=== PATIENT | male | born 1965 | race Caucasian/White ===

== ENCOUNTER 2017-01-15 16:16 | Emergency (ER) | payer OTHER ==
[2017-01-15 16:39] VITALS: BP 127/73; PULSE 81; RESP 18; TEMP 97.8; O2SAT 100
[2017-01-15 16:40] VITALS: BP 127/73; PULSE 81; RESP 18; TEMP 97.8; O2SAT 100
--- NOTE | 2017-01-15 16:43 | PD ---
HPI Chief Complaint: Skin Problem Time Seen by Provider: 16:28 Travel History International Travel<30 days: No Contact w/Intl Traveler<30days: No Traveled to known affect area: No History of Present Illness HPI 52-year-old male here for evaluation of an area of skin redness and purulent drainage. 4 days ago he injected IV opiates into his left antecubital fossa. He feels that he missed the vein. He since then developed an area of soft tissue swelling, fluctuance, erythema. The area spontaneously opened up and has been draining purulent drainage today and has made it feel better. He was seen at the [facility] and sent here for evaluation. He endorses pain at the site of the abscess, aching, worse with palpation. No fevers, chills, proximal streaking of the skin, axillary pain. No chest pain or shortness of breath. He has no other complaints at this time. [facility] Social History Alcohol Use: Yes Tobacco Use: Yes Substance Use: Yes Allergies-Medications (Allergen,Severity, Reaction): Coded Allergies: Penicillin (Verified Allergy, Unknown, 01/15/17) Reported Meds & Prescriptions Reported Meds & Active Scripts Active Triamcinolone Topical 0.025 % Oint 1 Applic TOPICAL BID 10 Days Bactrim DS (Sulfamethoxazole-Trimethoprim) 800-160 Mg Tab 1 Tab PO BID Clindamycin (Clindamycin HCl) 300 Mg Cap 300 Mg PO Q6H 10 Days Review of Systems Except as stated in HPI: all other systems reviewed are Neg Physical Exam Narrative GENERAL: Well-nourished male in no acute distress SKIN: Warm and dry. Examination of the left antecubital fossa reveals an area of erythema with no induration. There is a central approximately 1 cm area that is open and draining some purulent yellow pus. There is no proximal streaking, no left axillary lymphadenopathy. HEAD: Atraumatic. Normocephalic. EYES: Pupils equal and round. No scleral icterus. No injection or drainage. ENT: No nasal bleeding or discharge. Mucous membranes pink and moist. NECK: Trachea midline. No JVD. CARDIOVASCULAR: Regular rate and rhythm. No murmur appreciated. RESPIRATORY: No accessory muscle use. Clear to auscultation. Breath sounds equal bilaterally. MUSCULOSKELETAL: Skin as noted above. No joint effusion. Full range of motion of the left arm. Data Data Last Documented VS Vital Signs Date Time Temp Pulse Resp B/P Pulse Ox O2 Delivery O2 Flow Rate FiO2 01/15/17 16:40 97.8 81 18 127/73 100 Room Air Orders Clindamycin (Cleocin) (01/15/17 16:45) Sulfamet-Trimeth Ds 800-160 Mg (Bactrim (01/15/17 16:45) Wound Culture And Gram Stain (01/15/17 16:39) MDM Medical Decision Making Medical Screen Exam Complete: Yes Emergency Medical Condition: Yes Medical Record Reviewed: Yes Differential Diagnosis Cutaneous abscess, cellulitis, sepsis, osteomyelitis, septic arthritis Narrative Course 52-year-old male presents with an area of redness and soft tissue swelling and drainage of pus in the left antecubital region after he injected IV opiates therefore days ago. Examination reveals an area of mild cellulitis with a central abscess that has fully open up and is draining yellow purulence. Wound culture was performed and the abscess cavity was thoroughly irrigated. Symptoms are mild and can be treated as an outpatient. Furthermore the patient adamantly does not want to be admitted at this time. I did discuss that these types of skin infections can oftentimes be treated as an outpatient but if symptoms are worsening that he should return to the emergency room. He is agreeable with this plan. Allergy to penicillin. He is being discharged with prescriptions for clindamycin and Bactrim, first dose given here. He also requests refill of triamcinolone which she uses for chronic dermatitis. Diagnosis Primary Impression: Abscess of left arm Additional Impression: Cellulitis of left arm Med/Other Pt SpecificInfo: Prescription(s) given, Wound Care Scripts Triamcinolone Topical 0.025 % Oint1 Applic TOPICAL BID 10 Days Ref 0 Prov:Shree Gaspar MD 01/15/17 Sulfamethoxazole-Trimethoprim (Bactrim DS)800-160 Mg Tab1 Tab PO BID #20 TAB Ref 0 Prov:Shree Gaspar MD 01/15/17 Clindamycin 300 Mg Vec502 Mg PO Q6H 10 Days Ref 0 Prov:Shree Gaspar MD 01/15/17 Disposition: 01 DISCHARGE HOME Condition: Stable Luís Wilcox Jan 15, 2017 16:43
[2017-01-15] MEDS ORDERED: CLIN1CAP6 PO (16:44)
[2017-01-15] MEDS ORDERED: BACT800T5 PO (16:44)
[2017-01-15] MEDS ORDERED: SULFAMETHOXAZOLE-TRIMETHOPRIM DS 800-160 MG TAB PO ONE (16:45)
[2017-01-15] MEDS ORDERED: CLINDAMYCIN 150 MG CAP PO ONE (16:45)
[2017-01-15] MEDS ORDERED: TRIA0.022 TOPICAL (17:15)
== END 2017-01-15 17:44 | disposition home or self-care (01) ==
LOC: NETRI 16:16
DX: L02.414 Cutaneous abscess of left upper limb (principal); L03.114 Cellulitis of left upper limb; Z72.0 Tobacco use
CPT/HCPCS: 87070; 99285